=== PATIENT | female | born 1945 ===

== ENCOUNTER 2017-07-18 09:29 | Outpatient (CLI) | payer MEDICARE ==
--- NOTE | 2017-07-19 08:37 | Fluoroscopy Report ---
BARIUM SWALLOW History: Dysphagia. Findings: 68 fluoroscopic images were captured during this exam. There was no evidence for aspiration, however, was significant pooling of the contrast agent within the vallecula and piriform sinuses throughout this exam. 2 abnormalities are identified in the cervical esophagus just distal to the larynx. 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 Narrowing is estimated at 20% or less. There is also suggestion of mucosal nodularity along the anterior cervical esophagus near the same level as the ring/web. I cannot exclude a mass in this area. The remainder of the esophagus is normal caliber and mucosal pattern throughout. No evidence for hiatal hernia. Occasional tertiary contractions were witnessed in the esophagus consistent with mild esophageal spasm. Impression: Abnormal appearance of the cervical esophagus as outlined above. 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 There also is suggestion of mucosal irregularity concerning for neoplasm. Consider direct visualization. Abnormal pooling of the contrast agent within laryngeal structures but no evidence for aspiration.
== END 2017-07-18 09:30 | disposition home or self-care (01) ==
LOC: FLUORO 09:29
PROVIDERS: ATTEND Internal Medicine Cardiovascular Disease
DX: K22.2 Esophageal obstruction (principal); J44.9 Chronic obstructive pulmonary disease, unspecified; J04.0 Acute laryngitis; R13.10 Dysphagia, unspecified; F17.200 Nicotine dependence, unspecified, uncomplicated
CPT/HCPCS: 74220

== ENCOUNTER 2017-07-25 18:04 | Emergency (ER) | payer MEDICARE ==
--- NOTE | 2017-07-25 19:09 | Emergency Department Report ---
HPI - General Chief Complaint: Dyspnea/Respdistress Time Seen by Provider: 07/25/17 18:59 - HPI HPI: 72-year-old male presents to the emergency department by EMS from home with complaint of some sternal chest pain that has since resolved and some shortness of breath. However he says that the shortness of breath has been going on for a "long time." He says that he has a metallic taste in his mouth and feels as if he has been breathing salt in and out of his mouth. He is a tobacco smoker but denies any illicit drug use or abuse. He denies any other past medical history. He received some aspirin in route but otherwise did not take anything for her symptoms prior to presentation. His primary care physician is a Dr. Christian Munoz. He does not have a coach cleaner. No recent travel or sick contacts at home. ED Past Medical Hx - Social History Smoking Status: Current Every Day Smoker Substance Use Type: None - Medications Home Medications: Home Medications Medication Instructions Recorded Confirmed Last Taken Type ALBUTEROL Inhaler [ProAir HFA 2 puff IH QID PRN #1 inhalation 07/26/17 Unknown Rx Inhaler] ED Review of Systems ROS: Stated complaint: CHEST PAIN Other details as noted in HPI Comment: All other systems reviewed and negative Constitutional: denies: chills, fever Eyes: denies: eye pain, eye discharge, vision change ENT: denies: ear pain, throat pain Respiratory: shortness of breath. denies: orthopnea Cardiovascular: chest pain. denies: edema Gastrointestinal: denies: abdominal pain, nausea, diarrhea Genitourinary: denies: urgency, dysuria Musculoskeletal: denies: back pain, joint swelling, arthralgia Skin: denies: rash, lesions Neurological: denies: headache, weakness, paresthesias Physical Exam - Physical Exam Vital Signs: Vital Signs 07/25/17 18:44 Temperature 98.1 F Pulse Rate 87 Respiratory 18 Rate Blood Pressure 132/86 O2 Sat by Pulse 95 Oximetry Physical Exam: GENERAL: The patient is well-developed well-nourished. HENT: Normocephalic. Atraumatic. Patient has moist mucous membranes. EYES: Extraocular motions are intact. Pupils equal reactive to light bilaterally. NECK: Supple. Trachea is midline. CHEST/LUNGS: Clear to auscultation. There is no respiratory distress noted. HEART/CARDIOVASCULAR: Regular. There is no tachycardia. There is no murmur. ABDOMEN: Abdomen is soft, nontender. Patient has normal bowel sounds. There is no abdominal distention. SKIN: Skin is warm and dry. NEURO: The patient is awake, alert, and oriented. The patient is cooperative. The patient has no focal neurologic deficits. The patient has normal speech. MUSCULOSKELETAL: There is no tenderness or deformity. There is no limitation range of motion. There is no evidence of acute injury. ED Course Vital Signs 07/25/17 18:44 Temperature 98.1 F Pulse Rate 87 Respiratory 18 Rate Blood Pressure 132/86 O2 Sat by Pulse 95 Oximetry - Reevaluation(s) Reevaluation #1: 07/26/17 02:26 HEART Pathway for Early Discharge in Acute Chest Pain from [facility] on 2017 All calculations should be rechecked by clinician prior to use RESULT SUMMARY: 3 points HEART Pathway Score Low risk 0.91.7% 30-day MACE Repeat troponin at 3 hours and if negative, discharge home with outpatient follow-up. INPUTS: History > 0 = Slightly suspicious EKG > 0 = Normal Age > 2 = =66 Risk factors > 1 = 1-2 risk factors Initial troponin > 0 = =normal limit ED Medical Decision Making - Lab Data Result diagrams: 07/25/17 19:07 07/25/17 19:07 - EKG Data -: EKG Interpreted by Me EKG shows normal: sinus rhythm, axis, intervals, QRS complexes, ST-T waves Rate: normal - EKG Data When compared to previous EKG there are: previous EKG unavailable Interpretation: normal EKG - Radiology Data Radiology results: report reviewed, image reviewed interpreted by me: Chest x-ray shows some hyperinflation of the lungs but otherwise no obvious pneumonia or pleural effusions. CT of the neck with IV contrast shows mild asymmetry of soft tissue convexity in the right supraglottic region that may be due to postsurgical change or alteration of adjacent cervical spine versus positional or swallowing artifact but it is nonspecific. Paranasal sinus disease including findings suggesting mucocele on the right maxillary sinus. - Medical Decision Making The patient had some chest pain earlier that resolved prior to presentation in the emergency department and his main complaint is some shortness of breath. He also has a complaint of some questionable neck lumps/nodules. Labs have been unremarkable including negative troponins 3 and a negative d-dimer. There is no significant leukocytosis, electrolyte abnormalities, renal insufficiency or glucose modalities. Chest x-ray does not show any acute process. CT of the neck with IV contrast does not show any signs of any mass, tumors, significant lymphadenopathy or any other acute distress. The patient was reevaluated multiple times for multiple hours and says that he is feeling improved and asking for discharge home. He has good follow-up with primary care and has been given a referral for cardiology. He understands to return to the emergency department immediately with any return of his chest pain or with any acute distress. - Differential Diagnosis TN, costochondritis, pneumonia, PE, COPD Critical Care Time: No Critical care attestation.: If time is entered above; I have spent that time in minutes in the direct care of this critically ill patient, excluding procedure time. ED Disposition Clinical Impression: Tobacco use disorder Dyspnea Qualifiers: Dyspnea type: shortness of breath Qualified Code(s): R06.02 - Shortness of breath Chest pain Qualifiers: Chest pain type: unspecified Qualified Code(s): R07.9 - Chest pain, unspecified Disposition: TO HOME OR SELFCARE Is pt being admited?: No Condition: Stable Instructions: Chest Pain (ED), How to Stop Smoking (ED), Dyspnea (ED) Additional Instructions: Please follow-up with your primary care physician in the next few days. I have given you a referral for a local coach cleaner, Dr. John, to follow-up regarding your previous chest pain. Please return to the emergency department immediately with any return of your chest pain, worsening of your shortness of breath, with any acute distress. Prescriptions: ALBUTEROL Inhaler [ProAir HFA Inhaler] 2 puff IH QID PRN #1 inhalation PRN Reason: Shortness Of Breath Referrals: PRIMARY CAREMD [Primary Care Provider] - 3-5 Days ELISABETH JOHN MD [Staff Physician] - 3-5 Days Time of Disposition: 02:02
[2017-07-25 19:27] LABS: Basophils # (Auto) 0.1 K/mm3 (0.0-0.1); Basophils % (Auto) 0.8 % (0.0-1.8); Eosinophils # (Auto) 0.1 K/mm3 (0.0-0.4); Eosinophils % (Auto) 1.3 % (0.0-4.3); Hematocrit 42.7 % (35.5-45.6); Hemoglobin 14.1 gm/dl (11.8-15.2); Lymphocytes # (Auto) 1.7 K/mm3 (1.2-5.4); Lymphocytes % (Auto) 16.8 % (13.4-35.0); Mean Corpuscular HGB Conc 33 % (32-34); Mean Corpuscular Hemoglobin 29 pg (28-32); Mean Corpuscular Volume 88 fl (84-94); Monocytes # (Auto) 0.7 K/mm3 (0.0-0.8); Monocytes % (Auto) 6.5 % (0.0-7.3); Platelet Count 297 K/mm3 (140-440); Red Blood Count 4.87 M/mm3 (3.65-5.03); Red Cell Distribution Width 13.6 % (13.2-15.2)
[2017-07-25 19:28] LABS: INR 0.95 (0.87-1.13)
[2017-07-25 19:29] LABS: BUN/Creatinine Ratio 7; Blood Urea Nitrogen 8 mg/dL (9-20); Calcium 8.8 mg/dL (8.4-10.2); Hemolysis Index 8
[2017-07-25] MEDS ORDERED: DUONEB *Not for PRN Use IH ONE (19:41)
[2017-07-26 06:49] VITALS: BP 129/113
--- NOTE | 2017-07-30 14:14 | XRay Report ---
FINAL REPORT EXAM: XR CHEST 1V AP HISTORY: DIFF TECHNIQUE: Single, portable chest x-ray. PRIORS: None. FINDINGS: Cardiac and mediastinal silhouette within normal limits. Lungs are hyperinflated, with probable mild interstitial change or scarring scattered bilaterally. No significant vascular congestion, focal consolidation or apparent pneumothorax. No acute osseous abnormality in the bony thorax. IMPRESSION: 1. No acute findings.
--- NOTE | 2017-07-30 14:16 | Cat Scan Report ---
FINAL REPORT EXAM: CT NECK W CON HISTORY: voice change, "neck lumps" and pain TECHNIQUE: Spiral CT scanning of the neck after the uneventful administration of IV contrast. PRIORS: None. FINDINGS: Mild asymmetry and soft tissue convexity in the right posterolateral supraglottic region of aryepiglottic fold, nonspecific. No apparent soft tissue mass, discrete abscess or significant adenopathy. The parapharyngeal, pickle processor, parotid, carotid, retropharyngeal and prevertebral spaces are without significant abnormality. The submandibular and sublingual spaces are grossly unremarkable. Larynx, trachea, thyroid gland and thoracic inlet within normal limits. Emphysematous change in the visualized upper lungs. Postsurgical and degenerative changes in the cervical spine, including anterior compression screw plate fixation device in the C4-6 levels. Diffuse opacification and expansile appearance of right maxillary sinus suggesting mucocele. Probable mucous retention cyst versus polyp in the left inferior maxillary sinus. Some mucosal thickening also in left posterior ethmoid sinus. No abnormal air-fluid levels. IMPRESSION: 1. Mild asymmetry and soft tissue convexity in the right supraglottic region may be due to postsurgical change or alteration of adjacent cervical spine versus positional or swallowing artifact, but is nonspecific. Correlation with direct visualization may help in further evaluation, as clinically indicated. 2. Paranasal sinus disease, including findings suggesting mucocele in right maxillary sinus.
== END 2017-07-26 04:50 | disposition home or self-care (01) ==
LOC: EDSEX → ED 18:04
DX: R07.9 Chest pain, unspecified (principal); R06.02 Shortness of breath; F17.200 Nicotine dependence, unspecified, uncomplicated; Z88.6 Allergy status to analgesic agent
CPT/HCPCS: 36415; 70491; 71045; 80048; 84484; 85025; 85379; 85610; 85730; 94640; 99285; Q9967